=== PATIENT | female | born 1980 | race Caucasian/White ===

== ENCOUNTER 2017-03-15 06:58 | Emergency (ER) | payer OTHER ==
[~2017-03-15] VITALS: Ht 157.5 cm; Wt 58.8 kg
[2017-03-15 08:12] LABS: HEMATOCRIT 40.7 % (36.0-46.0); MCH 31.2 PG (29.0-34.0); MCHC 34.6 G/DL (30.0-36.0); MEAN PLAT.VOLUME 12.5 uM^3 (9.5-12.4); PLATELET COUNT 194 K/uL (156-360); RBC DIS.WIDTH-CV 11.8 % (11.8-14.6); RBC DIS.WIDTH-SD 38.6 % (39-53); RED BLOOD COUNT 4.52 M/uL (3.80-5.20); WHITE BLOOD COUNT 5.3 K/uL (4.1-10.2)
[2017-03-15 08:19] LABS: D-DIMER ELISA < 150.00 ng/mLDDU (<230)
[2017-03-15 08:24] LABS: CHLORIDE 109 mEq/L (99-109); POTASSIUM 4.1 mEq/L (3.7-5.4); SODIUM 141 mEq/L (136-147)
[2017-03-15 08:25] LABS: MAGNESIUM 2.1 mg/dL (1.3-2.7)
[2017-03-15 08:26] LABS: GLUCOSE 102 mg/dL (70-99)
[2017-03-15 08:28] LABS: ANION GAP 8 MEQ/L (2-14); TOTAL BILIRUBIN 1.3 mg/dL (0.0-1.0)
[2017-03-15 08:30] LABS: ALKALINE PHOSPHATASE 47 IU/L (3-129); GFR ESTIMATE (CALCULATED) > 59 mL/min/
[2017-03-15 08:31] LABS: UREA NITROGEN (BUN) 11 mg/dL (9-23)
[2017-03-15 08:42] LABS: QUANTITATIVE HCG < 4.0 MIU/ML
[2017-03-15 09:42] VITALS: BP 117/72
== END 2017-03-15 09:44 | disposition home or self-care (01) ==
LOC: EME 06:58
PROVIDERS: Emergency Medicine
DX: R00.2 Palpitations (principal); R01.1 Cardiac murmur, unspecified; Z88.0 Allergy status to penicillin
CPT/HCPCS: 80053; 83735; 84443; 84702; 85027; 85379; 93005; 99281; 99284